=== PATIENT | female | born 1950 | race Two or more races ===

== ENCOUNTER 2017-05-30 07:21 | Inpatient (IN) | payer OTHER ==
[~2017-05-30] VITALS: Ht 162.6 cm; Wt 59.9 kg
[2017-05-30] MEDS ORDERED: NORVASC5 MG (07:51)
[2017-05-30] MEDS ORDERED: ALBUTEROL0.63 MG/3 (07:51)
[2017-06-03] MEDS ORDERED: DOXYCYCLINE HY100 MG PO (16:57)
[2017-06-03] MEDS ORDERED: SUCRALFATE1 GM/10 ML PO (16:57)
[2017-06-03] MEDS ORDERED: PREDNISONE20 MG PO (16:57)
[2017-06-03] MEDS ORDERED: NeurRONTin 100mg cap PO (16:57)
[2017-06-03] MEDS ORDERED: Tussi-Organidin Dm-S PO (16:57)
[2017-06-03] MEDS ORDERED: GABAPENTIN800 MG PO (16:57)
[2017-06-03] MEDS ORDERED: AMLODIPINE BESYL5 MG PO (16:57)
[2017-06-03] MEDS ORDERED: INTESTINEX680 M1 PO (16:57)
[2017-06-03] MEDS ORDERED: Diflucan PO (16:57)
== END 2017-06-03 17:15 | disposition home or self-care (01) | DRG 190 ==
LOC: ER 07:21 → MEDI 12:12 → SEC-K 12:12 → MEDI 13:51
PROC: 3E0F7GC Introduction of Other Therapeutic Substance into Respiratory Tract, Via Natural or Artificial Opening (ICD-10-PCS; principal; 2017-05-30)
PROC: 4A033R1 Measurement of Arterial Saturation, Peripheral, Percutaneous Approach (ICD-10-PCS; 2017-05-30)
DX: J44.1 Chronic obstructive pulmonary disease with (acute) exacerbation (principal); J18.9 Pneumonia, unspecified organism; J45.41 Moderate persistent asthma with (acute) exacerbation; J44.0 Chronic obstructive pulmonary disease with (acute) lower respiratory infection; J20.9 Acute bronchitis, unspecified; M06.89 Other specified rheumatoid arthritis, multiple sites; I10 Essential (primary) hypertension

== ENCOUNTER 2020-07-01 11:17 | Emergency (ER) | payer OTHER ==
[~2020-07-01] VITALS: Ht 152.4 cm; Wt 61.2 kg
[~2020-07-01 11:17] MED LIST: ALBUTEROL0.63 MG/3; AMLODIPINE BESYL5 MG PO; DOXYCYCLINE HY100 MG PO; Diflucan PO; GABAPENTIN800 MG PO; INTESTINEX680 M1 PO; NORVASC5 MG; NeurRONTin 100mg cap PO; PREDNISONE20 MG PO; SUCRALFATE1 GM/10 ML PO; Tussi-Organidin Dm-S PO
[2020-07-01] MEDS ORDERED: BREO ELLIPTA I1 EACH IH (11:33)
== END 2020-07-01 15:24 | disposition home or self-care (01) ==
LOC: ER 11:17
DX: M79.662 Pain in left lower leg (principal); M79.661 Pain in right lower leg

== ENCOUNTER 2021-05-10 01:26 | Emergency (ER) | payer OTHER ==
[~2021-05-10] VITALS: Ht 154.9 cm; Wt 61.2 kg
[~2021-05-10 01:26] MED LIST changes: +BREO ELLIPTA I1 EACH IH
[2021-05-10] MEDS ORDERED: LEVOFLOXACIN750 MG PO (04:43)
[2021-05-10] MEDS ORDERED: DICLOFENAC SODI75 MG PO (04:43)
== END 2021-05-10 06:07 | disposition home or self-care (01) ==
LOC: ER 01:26
DX: L03.115 Cellulitis of right lower limb (principal)

== ENCOUNTER 2021-05-14 23:41 | Inpatient (IN) | payer OTHER ==
[~2021-05-14] VITALS: Ht 157.5 cm; Wt 62.1 kg
[~2021-05-14 23:41] MED LIST changes: +DICLOFENAC SODI75 MG PO; +LEVOFLOXACIN750 MG PO
== END 2021-05-20 20:23 | disposition home or self-care (01) | DRG 603 ==
LOC: ER 23:41 → SEC-K 05-15 08:26 → MEDI 05-15 08:26
PROVIDERS: ADMIT Internal Medicine; ATTEND Internal Medicine
DX: L03.115 Cellulitis of right lower limb (principal); L02.415 Cutaneous abscess of right lower limb; M79.604 Pain in right leg; M79.605 Pain in left leg; B95.61 Methicillin susceptible Staphylococcus aureus infection as the cause of diseases classified elsewhere; I10 Essential (primary) hypertension; J44.9 Chronic obstructive pulmonary disease, unspecified; M06.9 Rheumatoid arthritis, unspecified; Z20.822 Contact with and (suspected) exposure to COVID-19

== ENCOUNTER 2024-03-14 20:43 | Emergency (ER) | payer OTHER ==
[~2024-03-14] VITALS: Ht 149.9 cm; Wt 52.2 kg
[2024-03-14] MEDS ORDERED: ONDANSETRON HCL 2 MG/ML VIAL IV ONE (22:45)
[2024-03-14] MEDS ORDERED: FAMOtidine 10 MG/ML (4ML VIAL) IV ONE (22:45)
[2024-03-14 23:29] LABS: HEMATOCRIT 47.1 % (36.0-45.00); HEMOGLOBIN 15.2 g/dL (12.0-15.00); MEAN CELL VOLUME 82.2 fL (80.00-100.00); MEAN CORPUSCULAR HEMOGLOBIN 26.5 pg (27.00-32.0); MEAN CORPUSCULAR HGB CONC 32.2 g/dl (32.0-36.0); PLATELET COUNT 169 K/uL (150-450); RED BLOOD COUNT 5.73 M/uL (4.00-6.00); RED CELL DISTRIBUTION WIDTH 13.7 % (11.5-14.5)
[2024-03-14 23:53] LABS: ALBUMIN 3.6 gm/dL (3.4-5.0); BILIRUBIN TOTAL 0.43 mg/dL (0.3-1.2); CALCIUM 9.2 mg/dL (8.5-10.1); CREATININE SERUM 0.73 mg/dL (0.55-1.02); GFR 78.37; GLOBULINA 3.8 G/DL (2.4-3.5); POTASSIUM 3.45 mEq/L (3.5-5.1); TOTAL PROTEIN 7.4 gm/dL (6.4-8.2)
[2024-03-15] MEDS ORDERED: PEPCID40 MG PO (03:36)
[2024-03-15] MEDS ORDERED: ONDANSETRON ODT4 MG PO (03:36)
[2024-03-15] MEDS ORDERED: INTESTINEX680 M1 PO (03:36)
== END 2024-03-15 03:39 ==
LOC: ER 20:45
PROVIDERS: General Practice
DX: K52.89 Other specified noninfective gastroenteritis and colitis (principal); Z88.0 Allergy status to penicillin; Z88.2 Allergy status to sulfonamides; K21.9 Gastro-esophageal reflux disease without esophagitis
CPT/HCPCS: 36415; 99282; J2360; J3490